=== PATIENT | female | born 1955 | race Caucasian/White ===

== ENCOUNTER → 2017-03-13 | Outpatient (CLI) | payer MEDICARE ==
[~2017-03-13] MED LIST: ALPR1TAB PO; ARIP20TA5 PO; DIAZ5TAB PO; ESTR0.5T PO; FAMO-79 PO; GABA300C10 PO; HYDR-3245 PO; IBUP-1222 PO; LEVO125T5 PO; MORP-52 PO; OXYC10TA6 PO; PRAV20TA2 PO
== END | disposition home or self-care (01) ==
LOC: CFH 09:59
PROVIDERS: ATTEND Neurological Surgery
DX: Z13.820 Encounter for screening for osteoporosis (principal); M85.88 Other specified disorders of bone density and structure, other site; M48.07 Spinal stenosis, lumbosacral region; M47.897 Other spondylosis, lumbosacral region; M41.86 Other forms of scoliosis, lumbar region; M41.84 Other forms of scoliosis, thoracic region; M43.17 Spondylolisthesis, lumbosacral region
CPT/HCPCS: 72082; 72148; 77080